=== PATIENT | female | born 1990 | race Caucasian/White ===

== ENCOUNTER → 2024-04-13 08:41 | Outpatient (REF) | payer OTHER, SELFPAY ==
[2024-04-13] VITALS (9 sets, daily range): BP systolic 90–168; BP diastolic 87–100
== END ==
LOC: RADI 08:41
PROVIDERS: ATTENDING PHYSICIAN Obstetrics & Gynecology Gynecologic Oncology
DX: N80.C11 Endometriosis of the anterior abdominal wall, fascia and muscular layers (principal)
CPT/HCPCS: 88305; 49180; 76942; 88333; 88341; 88342; 99152; 99153

== ENCOUNTER 2024-05-08 06:14 | Inpatient (IN) | payer OTHER, SELFPAY ==
--- NOTE | 2024-05-06 19:29 | W.CON.GYNONC ---
Chief Complaint
-
abdominal wall masses
History of Present Illness
33�year�old�G1�P1�0�0�1�white�female�referred�to�us�for�right�lower�quadrant�abdominal�mass�suspected�to�be�related�to endometriosis.�Patient�had�a�C�section�14�years�ago.�Surgery�was�complicated�by�MRSA�infection,�at�the�right�aspect�of�the
incision.�Patient�has�had�menarche�at�age�10,�has�menstrual�cycles�about�every�30�days�and�has�had�heavy�menstrual�cycles�for
some�time.�She�has�been�on�Nexplanon�over�the�last�11�to�12�years�but�stopped�about�a�year�ago.�Over�the�years�she�has�noted
tenderness�and�pain�involving�right�aspect�of�her�C�section�scar.�She�tells�me�that�she�does�not�check�this�area�regularly�because�it
is�in�the�fold�of�her�pannus.�CT�scan�was�performed�that�revealed�lobulated�soft�tissue�density�mass�abutting�rectus�muscle
posteriorly�on�the�right�abdominal�wall�measuring�6.1�x�5.2�x�7.5�cm,,�there�is�also�a�new�soft�tissue�density�along�the�left�pelvic
abdominal�wall�measuring�2�x�1.3�cm.�There�are�mildly�enlarged�and�prominent�right�inguinal�lymph�nodes�which�may�be�reactive. Further�workup�year�is�recommended.�There�was�an�indeterminate�Lesion�within�the�liver�<1�cm.�Patient�was�evaluated�and
recommended�to�follow�up�with�her�police surgeon,�Angela.�This�case�was�discussed�with�me�last�week,�I
recommended�office�visit�last�week�at�which�time�the�patient�actually�was�having�a�menstrual�cycle�and�noted�bleeding�from�the
incision.�Evaluation�by�ER�physician�shows�pinhole�that�has�dried�blood�with�small�amount�of�blood�within�the�area�but�no�active fluctuance.�She�was�given�analgesic�medication�and�apparently�the�area�was�cauterized.
MRI�of�the�pelvis�reveals�lobulated�mass,�6.3�x�4.7�x�5.1�cm,�lesion�is�centered�within�the�C�section�scar�extending�to�ventral abdominal�wall�possibly�invading�abdominal�wall�into�right�rectus�muscle.�Depth�of�invasion�is�approximately�6�mm.
Additionally�there�is�a�2.2�x�1.7�x�2.3�cm�additional�lesion�along�the�left�side�of�the�C�section�scar�abutting�abdominal�wall�and rectus�muscle.�This�lesion�may�invade�the�abdominal�wall/rectus�muscle�by�4�mm.
The�uterus�is�9.1�cm,�there�is�bilateral�ovarian�cysts�largest�measuring�1.2�cm,�they�may�have�complex�hemorrhagic�association�at features.�There�is�otherwise�no�other�abnormalities�noted�in�sigmoid�colon�has�scattered�diverticuli.
A�biopsy�of�the�right�lower�quadrant�abdominal�mass�was�performed�confirming�endometriosis�involving�fibroconnective�tissue.�P53 and�Ki�67�are�negative�supporting�the�diagnosis.
Past�medical�history�is�hypertension,�anxiety�and�depression
Past�surgical�history�significant�for�C�section�as�well�as�extraction�of�wisdom�teeth Social�history�significant�for�single,�lives�in�[place],�quit�tobacco�use�about�10�years�ago,�drinks�socially�occasionally,�denies�drug
or�marijuana�use,�works�as�an�administrative�insurance account assistant Family�history�noncontributory
Medications
Suri�Allergy�60�mg�tablet 04/04/2024 0 PRN
amlodipine�5�mg�tablet 04/04/2024 0 1�p.o.�q.�day
Ewelina�0.35�mg�tablet 04/04/2024 84 0 1�p.o.�q.�day
multivitamin�oral 04/04/2024 0 1�p.o.�twice�a�day�(BID)
Social�History Former�Smoker.�Year�Qu. Current�alcohol�user.�Patient�reports�an�average�of�2�drinks�per�month. Denies�any�illicit�drug�use. Occupational�Status:�Current:�Admin�[employer]�. Patient�has�not�had�any�occupational�exposure.
Marital�Status:�Patient�is�single Gynecological�History Age�at�Menarche�10�years.�Patient�reports�1�pregnancies.�Her�age�at�first�full�term��was�19�years. Family�Medical�History Mother���Dawood,�Lymphoma� Sister���Marta
Medical History
Past Medical History
Past Medical History: Reports HTN
Additional Past Medical History:
Allergies, Anxiety, Depression
Social History
Tobacco: Non-smoker
Alcohol: Occasional
Drug: None
Personal:
Allergies
Allergies reflect when allergies were last updated in [place].
Penicillins Allergy (Unknown, Verified 04/12/24 13:44)
Unknown
amoxicillin Allergy (Verified 04/12/24 13:44)
Unknown
cefuroxime [From Ceftin] Allergy (Verified 04/12/24 13:44)
Unknown
clindamycin Allergy (Verified 04/12/24 13:44)
Unknown
Review of Systems
-
History Source: Patient
A 12 point Review of Systems was completed except as noted: Yes
Physical Exam
Physical Exam
Pelvic�Examination: External�normal�labia,�urethra,�anus.� Vagina:�Normal�mucosa.� Cervix:�normal�appearance,�no�discharge.� Uterus:�normal�size.�Adnexa:� No�pelvic�mass.� RVE:�no�masses�or�nodularity
General:�Well�developed,�well�nourished�patient.�In�no�acute�distress. Neck:�No�thyromegaly.�No�cervical�lymphadenopathy.
Lungs:�Clear�to�auscultation.�Good�air�movement�bilaterally.
Cardiac:�Regular�rate.�Regular�rhythm.�No�murmurs�appreciated.
Right�Breast:�No�masses�or�dimpling.�No�nipple�discharge. Left�Breast:�No�masses�or�dimpling.�No�nipple�discharge. Abdomen:�Abdomen�is�soft.�Non�tender�to�palpation.�Non�distended.
In�the�right�lower�quadrant�of�the�abdomen�just�below�the�pannus�there�is�a�5�to�6�cm�firm�area�which�has�munguia�discoloration�close
to�the�skin.�This�area�is�mobile�and�does�not�have�any�fixation�to�this�fascia.�Similarly�in�the�left�lower�quadrant�with�deep�palpation�I can�appreciate�a�2�cm�area�of�firmness�deep�on�the�fascia.
Extremities:�No�edema. Hematologic/Lymphatic:�No�palpable�lymphadenopathy. Musculoskeletal:�Normal�range�of�motion.�Strength�and�Tone�are�normal.
Skin:Non�jaundiced.�No�petechia.�No�purpura.
Neurologic:�Speech�is�fluent.�Normal�gait�and�station.�Cranial�nerves�intact.
Impression / Plan
-
This�patient�is�likely�suffering�from�endometriosis�implants�in�her�C�section�scar.�During�the�last�decade�this�has�been�under�control
because�she�was�on�Nexplanon�which�is�a�form�of�progesterone.�With�discontinuation�of�that�the�endometriosis�probably�has progressed�and�now�has�become�symptomatic.�We�have�pathologic�confirmation�of�endometriosis�at�this�time.�MRI�findings�of�the
pelvis�are�otherwise�normal�and�I�do�not�see�any�indication�for�intra�abdominal�surgery. My�recommendations�are�as�follows
Proceed�with�open�excision�of�bilateral�right�lower�quadrant�and�left�lower�quadrant�abdominal�wall�implants,�most�likely�on�the�right
side�a�portion�of�the�fascia�will�need�to�be�excised�and�reconstructed.�I�did�offer�patient�opportunity�to�visit�with�plastic�surgery�and�I
will�consult�with�Dr.�Paliga.�I�will�see�whether�he�can�be�present�for�the�procedure�and�may�be�a�mini�abdominoplasty�can�be
performed.�Obviously�if�full�abdominoplasty�will�require�further�recovery.�Surgery�is�tentatively�[facility]�.�Labs
have�already�done�and�are�appropriate�for�the�procedure�otherwise.�Risk�of�surgery�discussed�with�the�patient.�She�understands that�future�additional�surgery�for�endometriosis�may�need�to�be�performed.
[2024-05-08] VITALS (13 sets, daily range): BP systolic 20–157; BP diastolic 81–104; BMI 45.0
[2024-05-08] MEDS: CELEBREX 200 MG PO (06:42)
[2024-05-08] MEDS: NEURONTIN 300 MG PO (06:42)
[2024-05-08] MEDS: TYLENOL 1000 MG PO (06:43)
[2024-05-08] MEDS: ROXICODONE 5 MG PO (10:37)
--- NOTE | 2024-05-09 13:23 | PN.CDI ---
CDI
- -
CDI:
Physician Documentation Request
Admit Date: 05/08/24 06:14
Dear Doctor Tra,
Please review the following and provide your response in the progress notes.
Clinical Indicators:
Selected Entries
05/08/24
06:15
Body Mass Index (BMI) 45.0
Please provide an associated diagnosis related to the abnormal BMI, such as:
BMI > or = to 40
Overweight
Obesity:
Due to excess calories
Drug induced
Due to other cause
Severe or morbid obesity:
With alveolar hypoventilation (Obesity hypoventilation syndrome)
Without alveolar hypoventilation
BMI, 45.0 Obesity
Other (please specify)
Use of terms such as suspected, likely, concern for, or probable (associated with a specific diagnosis that is being evaluated, monitored, or treated as if it exists) are acceptable and can be coded in the inpatient setting, when documented at the
time of discharge.
Thank you,
Amanda Schuler RN BSN CCDS
CDI Specialist
please contact via tiger text
Please use your independent medical judgment in providing your response.
--- NOTE | 2024-05-10 16:57 | W.PN.UPDATE ---
Update Note
Progress Note Update
response to CDI inquiry
BMIis 45. she has obesity due to excess calories.
Elijah Dutta MD
== END 2024-05-08 12:24 | disposition home or self-care (01) | DRG 749 ==
LOC: AMOS 06:14
PROVIDERS: ADMITTING PHYSICIAN Obstetrics & Gynecology Gynecologic Oncology
PROC: 0JB80ZZ Excision of Abdomen Subcutaneous Tissue and Fascia, Open Approach (ICD-10-PCS; 2024-05-08)
DX: N80.C11 Endometriosis of the anterior abdominal wall, fascia and muscular layers (principal); Z68.42 Body mass index [BMI] 45.0-49.9, adult; N80.6 Endometriosis in cutaneous scar; E66.09 Other obesity due to excess calories; F32.A Depression, unspecified; F41.9 Anxiety disorder, unspecified; I10 Essential (primary) hypertension; Z98.891 History of uterine scar from previous surgery; Z88.0 Allergy status to penicillin; Z87.891 Personal history of nicotine dependence
CPT/HCPCS: 88304; 87070; C1776